=== PATIENT | female | born 1980 | race Caucasian/White ===

== ENCOUNTER → 2023-04-26 | Outpatient (CLI) | payer OTHER | END | disposition home or self-care (01) | LOC: LAB 12:58 → LAB SHORT 12:58 | DX: Z34.83 Encounter for supervision of other normal pregnancy, third trimester (principal); Z3A.36 36 weeks gestation of pregnancy | CPT/HCPCS: 87081; 87150 ==

== ENCOUNTER 2023-05-25 07:04 | Inpatient (IN) | payer OTHER ==
[2023-05-25] VITALS (23 sets, daily range): BP systolic 95–160; BP diastolic 51–117
[~2023-05-25] VITALS: Ht 157.5 cm; Wt 95.4 kg
[2023-05-25] MEDS ORDERED: PRENATAL 19 TA1 EAC3 PO (08:07)
[2023-05-25] MEDS ORDERED: MONT10T (08:07)
[2023-05-25] MEDS ORDERED: ZYRTEC10 M2 PO (08:07)
[2023-05-25] MEDS ORDERED: ALBU2.5V5 (08:08)
[2023-05-25] MEDS ORDERED: BUPR100 PO (08:08)
[2023-05-25 08:14] LABS: BASOPHILS ABSOLUTE AUTO 0.05 K/mm3 (0.00-0.23); BASOPHILS PERCENT AUTO 1 % (0-2); EOSINOPHILS ABSOLUTE AUTO 0.17 K/mm3 (0.00-0.68); EOSINOPHILS PERCENT AUTO 2 % (0-6); Hematocrit 40.9 % (33.0-51.0); Hemoglobin 13.7 g/dL (11.5-16.0); IMMATURE GRAN ABSOLUTE AUTO 0.03 K/mm3 (0.00-0.10); IMMATURE GRAN PERCENT AUTO 0 % (0-1); LYMPHOCYTES ABSOLUTE AUTO 1.14 K/mm3 (0.84-5.20); LYMPHOCYTES PERCENT AUTO 13 % (21-46); MONOCYTES ABSOLUTE AUTO 0.93 K/mm3 (0.16-1.47); MONOCYTES PERCENT AUTO 11 % (4-13); Mean Corpuscular HGB 31.4 pg (26.0-34.0); Mean Corpuscular HGB Conc 33.5 g/dL (31.5-36.5); Mean Corpuscular Volume 94 fL (80-100); Mean Platelet Volume 10.6 fL (9.1-12.4); NEUTROPHILS ABSOLUTE AUTO 6.56 K/mm3 (1.96-9.15); NEUTROPHILS PERCENT AUTO 74 % (41-73); Platelet Count 171 K/mm3 (150-400); RDW Coefficient Variation 13.3 % (11.7-14.2); RDW Standard Deviation 45.1 fL (35.1-46.3); Red Blood Cell Count 4.37 M/mm3 (3.80-5.20); White Blood Cell Count 8.88 K/mm3 (4.00-11.30)
--- NOTE | 2023-05-25 13:31 | NUR ---
05/25/23 133[address] 1318 DELIVERY OF VIABLE MALE INFANT. APGARS 9/9. WEIGHT 3730 GM. PLACENTA DELIVERED MANUALLY AND COMPLETE. CORD SEGMENT SENT WITH RT FOR CORD GASSES. CORD BLOOD SAMPLE SENT WITH BABY'S RN.
[2023-05-25 13:34] LABS: PCO2 Cord - Arterial 72.9 mmHg (40-50); PO2 Cord - Arterial 16.2 mmHg (16-20); pH Cord - Arterial 7.21 (7.28-7.35)
[2023-05-25 13:35] LABS: PO2 Cord - Venous 21.7 mmHg (28-32); pH Umbilical Cord - Venous 7.35 (7.26-7.35)
--- NOTE | 2023-05-25 22:17 | NUR ---
PT REPORTED AT 1999 THAT SHE FELT LIKE HER PAIN WAS NOT BEING CONTROLLED WELL. SHE RECEIVED TRACI 10 MG AT 183 AND IS HAVING 7-8/10 PAIN. TRIED REPOSITIONING PATIENT, WHICH SHE REPORTED DIDN'T HELP. HER ALLERGY DRUG LIST SAID SHE ALLERGIC TO NSAIDS. CALL TO DR. WEST, WHO IS [facility]ER. ADVISED TO CHANGE TRACI 5-10 MG Q2H RATHER THAN Q4H PRN. ALSO HYDROXYZINE 25-50 MG PO Q4H PRN. SPOKE WITH PT WHO SAID IN THE PAST SHE HAS HAD HYDROXYZINE AND IT CAUSED HER TO NOT BE ABLE TO SLEEP ALL NIGHT. SHE DECLINED HYDROXYZINE. I ASKED WHAT HER REACTION TO NSAIDS WAS AND SHE SAID THAT SHE TOOK NAPROXEN IN THE PAST AND SHE HAD A SEVERE ASTHMA ATTACK AND THAT SINCE SHE HAD A GASTRIC SLEEVE IN 2017, SHE IS UNABLE TO TAKE ORAL NSAIDS, BUT THAT SHE ISN'T ACTUALLY ALLERGIC TO THEM, BESIDES NAPROXEN. I TALKED WITH HER ABOUT IV TORADOL AND SHE SAID SHE WOULD LIKE TO TRY IT. CALL TO DR. WEST, WHO APPROVED TORADOL X6. ORDERS PUT IN.
--- NOTE | 2023-05-25 22:30 | NUR ---
UPDATED PT'S ALLERGY LIST AND REMOVED NSAIDS. PT WAS NOTIFIED OF THIS AND NOTIFIED THAT SHE NEEDS TO TELL PROVIDERS IN THE FUTURE THAT SHE CANNOT TAKE ORAL NSAIDS DUE TO HER GASTRIC SLEEVE.
[2023-05-26 04:09] VITALS: BP 101/59
[2023-05-26 06:29] LABS: BASOPHILS ABSOLUTE AUTO 0.02 K/mm3 (0.00-0.23); BASOPHILS PERCENT AUTO 0 % (0-2); EOSINOPHILS ABSOLUTE AUTO 0.01 K/mm3 (0.00-0.68); EOSINOPHILS PERCENT AUTO 0 % (0-6); Hematocrit 36.1 % (33.0-51.0); Hemoglobin 12.2 g/dL (11.5-16.0); IMMATURE GRAN ABSOLUTE AUTO 0.07 K/mm3 (0.00-0.10); IMMATURE GRAN PERCENT AUTO 1 % (0-1); LYMPHOCYTES ABSOLUTE AUTO 1.21 K/mm3 (0.84-5.20); LYMPHOCYTES PERCENT AUTO 8 % (21-46); MONOCYTES PERCENT AUTO 9 % (4-13); Mean Corpuscular HGB 32.1 pg (26.0-34.0); Mean Corpuscular HGB Conc 33.8 g/dL (31.5-36.5); Mean Corpuscular Volume 95 fL (80-100); Mean Platelet Volume 10.9 fL (9.1-12.4); NEUTROPHILS ABSOLUTE AUTO 12.58 K/mm3 (1.96-9.15); NEUTROPHILS PERCENT AUTO 82 % (41-73); Platelet Count 151 K/mm3 (150-400); RDW Coefficient Variation 13.4 % (11.7-14.2); RDW Standard Deviation 46.3 fL (35.1-46.3); White Blood Cell Count 15.29 K/mm3 (4.00-11.30)
[2023-05-26 07:07] VITALS: BP 108/55
[2023-05-26 12:27] VITALS: BP 106/52
[2023-05-26 15:54] VITALS: BP 106/67
[2023-05-26 20:06] VITALS: BP 115/63
[2023-05-27 00:03] VITALS: BP 110/56
[2023-05-27 05:14] VITALS: BP 114/56
[2023-05-27 08:01] VITALS: BP 117/60
[2023-05-27] MEDS ORDERED: ACET500 PO (08:21)
[2023-05-27] MEDS ORDERED: OXAYDO5 M1 PO (08:22)
[2023-05-27 10:19] VITALS: BP 102/63
--- NOTE | 2023-05-27 11:36 | NUR ---
DISCHARGE DISCHARGE HOME STABLE. VERBALIZES UNDERSTANDING OF DC INSTURCTIONS AND FOLLOW UP APPOINTMENTS. PAIN WELL CONTROLLED WITH MEDS. MEDS GIVEN AT DISCHARGE AND PT WILL GET RX AT [facility] ON THE WAY HOME. VSS. AFEBRILE. CARING FOR SELF AND BABY INDENDANTLY.
== END 2023-05-27 10:55 | disposition home or self-care (01) | DRG 788 ==
LOC: BC 07:04 → OBS 07:04 → BC 07:25
PROVIDERS: ADMIT Family Medicine
PROC: 4A033R1 Measurement of Arterial Saturation, Peripheral, Percutaneous Approach (ICD-10-PCS; 2023-05-25)
PROC: 3E0DXGC Introduction of Other Therapeutic Substance into Mouth and Pharynx, External Approach (ICD-10-PCS; 2023-05-25)
PROC: 10D00Z1 Extraction of Products of Conception, Low, Open Approach (ICD-10-PCS; principal; 2023-05-25 12:45)
DX: O48.0 Post-term pregnancy (principal); Z3A.40 40 weeks gestation of pregnancy; Z37.0 Single live birth; O76 Abnormality in fetal heart rate and rhythm complicating labor and delivery; O99.344 Other mental disorders complicating childbirth; O77.0 Labor and delivery complicated by meconium in amniotic fluid; F31.9 Bipolar disorder, unspecified; Z91.011 Allergy to milk products; Z88.8 Allergy status to other drugs, medicaments and biological substances; Z91.018 Allergy to other foods
CPT/HCPCS: 36415; 82803; 85025; 86850; 86900; 86901; 86920; A9270; J1885; J2405; J2590; J2765; J3010; J7120

== ENCOUNTER 2025-05-09 05:15 | Inpatient (IN) | payer OTHER ==
[2025-05-09] VITALS (20 sets, daily range): BP systolic 83–108; BP diastolic 42–63
[~2025-05-09] VITALS: Ht 160 cm; Wt 104.5 kg
[~2025-05-09 05:15] MED LIST: ACET500 PO; ALBU2.5V5; BUPR100 PO; MONT10T; OXAYDO5 M1 PO; PRENATAL 19 TA1 EAC3 PO; ZYRTEC10 M2 PO
[2025-05-09] MEDS ORDERED: Oxytocin 10 Unit / ML Vial IM PRN (05:20)
[2025-05-09] MEDS ORDERED: Tranexamic Acid 100 ML IV PRN (05:20)
[2025-05-09] MEDS ORDERED: Methylergonovine Maleate 0.2MG / ML 1ML Amp IM PRN ×2 (05:20→09:25)
[2025-05-09] MEDS ORDERED: Carboprost Tromethamine 250 MCG/ML 1ML Amp IM PRN (05:20)
[2025-05-09] MEDS ORDERED: CeFAZolin Sodium 2,000 MG in NS 100 ML IV SCH ×2 (05:20→14:20)
[2025-05-09] MEDS ORDERED: OXYTOCIN/RINGER'S LACTATE 500 ML IV PRN (05:20)
[2025-05-09] MEDS ORDERED: Ondansetron HCl 2 MG / ML 2ML Vial IV PRN ×2 (05:20→09:30)
[2025-05-09] MEDS ORDERED: Flonase 0.05% N16 GM (06:04)
[2025-05-09] MEDS ORDERED: MONT10T PO (06:04)
[2025-05-09] MEDS ORDERED: CLON.5 (06:05)
[2025-05-09] MEDS ORDERED: MAGCIT300 PO (06:05)
[2025-05-09 06:06] LABS: BASOPHILS ABSOLUTE AUTO 0.04 K/mm3 (0.00-0.23); BASOPHILS PERCENT AUTO 1 % (0-2); EOSINOPHILS ABSOLUTE AUTO 0.16 K/mm3 (0.00-0.68); EOSINOPHILS PERCENT AUTO 2 % (0-6); Hematocrit 38.2 % (33.0-51.0); Hemoglobin 12.9 g/dL (11.5-16.0); IMMATURE GRAN ABSOLUTE AUTO 0.01 K/mm3 (0.00-0.10); IMMATURE GRAN PERCENT AUTO 0 % (0-1); LYMPHOCYTES ABSOLUTE AUTO 1.25 K/mm3 (0.84-5.20); LYMPHOCYTES PERCENT AUTO 16 % (21-46); MONOCYTES ABSOLUTE AUTO 0.73 K/mm3 (0.16-1.47); MONOCYTES PERCENT AUTO 9 % (4-13); Mean Corpuscular HGB Conc 33.8 g/dL (31.5-36.5); Mean Corpuscular Volume 92 fL (80-100); NEUTROPHILS ABSOLUTE AUTO 5.69 K/mm3 (1.96-9.15); NEUTROPHILS PERCENT AUTO 72 % (41-73); NRBC ABSOLUTE 0.00 K/mm3 (0.00-0.02); NRBC Auto 0.0 /100 WBC (0.0-0.2); Platelet Count 195 K/mm3 (150-400); RDW Coefficient Variation 14.3 % (11.7-14.2); RDW Standard Deviation 47.8 fL (35.1-46.3)
[2025-05-09] MEDS ORDERED: UNISOM PM PAIN1 EACH PO (06:06)
[2025-05-09] MEDS ORDERED: BUPR150ER PO (06:06)
[2025-05-09] MEDS ORDERED: C COMPLEX1000 M1 PO (06:07)
[2025-05-09] MEDS ORDERED: L-METHYLFOLATE15 MG PO (06:07)
[2025-05-09] MEDS ORDERED: ZYRTEC10 M4 PO (06:08)
[2025-05-09] MEDS ORDERED: Citric Acid/Sodium Citrate 30 ML BTL PO SCH (06:25)
[2025-05-09] MEDS ORDERED: Metoclopramide HCl 5MG / ML 2ML Vial IV SCH (06:25)
[2025-05-09] MEDS ORDERED: FentaNYL Citrate 50 MCG/ML 2 ML Injection ONE (07:07)
[2025-05-09] MEDS ORDERED: Phenylephrine HCl 100 MCG/ML-NS 10MLSYR (1MG/10ML) ONE (07:07)
[2025-05-09] MEDS ORDERED: Oxytocin 10 Unit / ML Vial ONE ×2 (07:07→08:15)
[2025-05-09] MEDS ORDERED: Albuterol 2.5 MG/3 ML VIAL INH PRN (07:30)
[2025-05-09] MEDS ORDERED: FentaNYL Citrate 50 MCG/ML 2 ML Injection IV PRN (07:35)
[2025-05-09] MEDS ORDERED: Glycopyrrolate 0.2 MG/ML 5ML VIAL ONE (08:15)
[2025-05-09 08:27] LABS: PCO2 Cord - Arterial 46.0 mmHg (40-50); PO2 Cord - Arterial 29.8 mmHg (16-20); pH Cord - Arterial 7.38 (7.28-7.35)
[2025-05-09 08:29] LABS: PCO2 Cord - Venous 46.7 mmHg (40-50); PO2 Cord - Venous 30 mmHg (28-32); pH Umbilical Cord - Venous 7.37 (7.26-7.35)
[2025-05-09] MEDS ORDERED: Prenatal Vit/FE Fumarate/FA 1 Tab PO SCH (09:00)
[2025-05-09] MEDS ORDERED: Fluticasone 0.05% Nasal Spray SCH (09:00)
[2025-05-09] MEDS ORDERED: Magnesium Hydroxide Conc 10 ML UDC PO PRN (09:25)
[2025-05-09] MEDS ORDERED: OxyCODONE 5 mg/Acetamin 325 mg TABLET PO PRN (09:30)
[2025-05-09] MEDS ORDERED: OXYTOCIN/RINGER'S LACTATE 500 ML IV SCH (09:30)
[2025-05-09] MEDS ORDERED: Morphine Sulfate 4 MG/1 ML Injection IV PRN (09:30)
[2025-05-09] MEDS ORDERED: Ketorolac Tromethamine 30mg Vial IV SCH (10:00)
[2025-05-10 05:23] VITALS: BP 108/58
[2025-05-10 05:23] LABS: BASOPHILS ABSOLUTE AUTO 0.05 K/mm3 (0.00-0.23); BASOPHILS PERCENT AUTO 0 % (0-2); EOSINOPHILS ABSOLUTE AUTO 0.16 K/mm3 (0.00-0.68); EOSINOPHILS PERCENT AUTO 1 % (0-6); Hematocrit 35.7 % (33.0-51.0); Hemoglobin 11.8 g/dL (11.5-16.0); IMMATURE GRAN ABSOLUTE AUTO 0.04 K/mm3 (0.00-0.10); IMMATURE GRAN PERCENT AUTO 0 % (0-1); LYMPHOCYTES ABSOLUTE AUTO 1.38 K/mm3 (0.84-5.20); LYMPHOCYTES PERCENT AUTO 12 % (21-46); MONOCYTES ABSOLUTE AUTO 1.07 K/mm3 (0.16-1.47); MONOCYTES PERCENT AUTO 9 % (4-13); Mean Corpuscular HGB Conc 33.1 g/dL (31.5-36.5); Mean Corpuscular Volume 96 fL (80-100); NEUTROPHILS ABSOLUTE AUTO 8.65 K/mm3 (1.96-9.15); NEUTROPHILS PERCENT AUTO 76 % (41-73); NRBC ABSOLUTE 0.00 K/mm3 (0.00-0.02); NRBC Auto 0.0 /100 WBC (0.0-0.2); Platelet Count 140 K/mm3 (150-400); RDW Coefficient Variation 14.6 % (11.7-14.2); RDW Standard Deviation 49.9 fL (35.1-46.3)
[2025-05-10 08:52] VITALS: BP 107/60
[2025-05-10] MEDS ORDERED: Ketorolac Tromethamine 30mg Vial IV ONE (09:15)
[2025-05-10 13:39] VITALS: BP 116/70
[2025-05-10] MEDS ORDERED: Ketorolac Tromethamine 30mg Vial IV PRN (16:05)
[2025-05-10 16:21] VITALS: BP 116/56
--- NOTE | 2025-05-10 17:37 | NUR ---
Report given to Sondra Perdomo RN
[2025-05-10 19:47] VITALS: BP 108/60
[2025-05-11 00:13] VITALS: BP 112/58
[2025-05-11 06:33] VITALS: BP 108/58
[2025-05-11 08:46] VITALS: BP 113/64
[2025-05-11] MEDS ORDERED: Ascorbic Acid 1000 MG Tab PO SCH (09:00)
[2025-05-11] MEDS ORDERED: OXAYDO5 M1 PO (11:13)
[2025-05-11 13:06] VITALS: BP 122/71
== END 2025-05-11 13:50 | disposition home or self-care (01) | DRG 787 ==
LOC: BC 05:15
PROVIDERS: ADMIT Obstetrics & Gynecology
PROC: 4A1HXCZ Monitoring of Products of Conception, Cardiac Rate, External Approach (ICD-10-PCS; 2025-05-09)
PROC: 10D00Z1 Extraction of Products of Conception, Low, Open Approach (ICD-10-PCS; principal; 2025-05-09 07:30)
DX: O34.211 Maternal care for low transverse scar from previous cesarean delivery (principal); O99.354 Diseases of the nervous system complicating childbirth; G43.909 Migraine, unspecified, not intractable, without status migrainosus; Z91.040 Latex allergy status; Z88.6 Allergy status to analgesic agent; Z88.8 Allergy status to other drugs, medicaments and biological substances; Z87.891 Personal history of nicotine dependence; Z3A.39 39 weeks gestation of pregnancy; Z37.0 Single live birth; O99.844 Bariatric surgery status complicating childbirth
CPT/HCPCS: 36415; 82803; 85025; 86850; 86900; 86901; 86923; 94760; A9270; J0690; J1885; J2371; J2590; J2765; J3010; J7120